=== PATIENT | female | born 1965 | race Hispanic/Latino ===

== ENCOUNTER 2021-08-04 15:06 | Emergency (ER) | payer OTHER ==
[~2021-08-04] VITALS: Ht 162.6 cm; Wt 81.9 kg
[2021-08-04] MEDS ORDERED: ATORVASTATIN CA20 MG PO (15:20)
[2021-08-04] MEDS ORDERED: TRAZODONE HCL100 MG PO (15:20)
[2021-08-04] MEDS ORDERED: AZITHROMYCIN250 MG PO (15:20)
[2021-08-04] MEDS ORDERED: VENLAFAXINE HCL75 M2 PO (15:20)
[2021-08-04] MEDS ORDERED: NAPROSYN500 MG PO (17:03)
[2021-08-04] MEDS ORDERED: CEFDINIR300 MG PO (17:11)
== END 2021-08-04 17:10 | disposition home or self-care (01) ==
LOC: FSED 15:30
DX: M25.562 Pain in left knee (principal); E78.5 Hyperlipidemia, unspecified; F32.9 Major depressive disorder, single episode, unspecified
CPT/HCPCS: 93971; 99284

== ENCOUNTER 2022-07-23 11:23 | Emergency (ER) | payer OTHER ==
[~2022-07-23] VITALS: Ht 162.6 cm; Wt 79.4 kg
[~2022-07-23 11:23] MED LIST: ATORVASTATIN CA20 MG PO; AZITHROMYCIN250 MG PO; CEFDINIR300 MG PO; NAPROSYN500 MG PO; TRAZODONE HCL100 MG PO; VENLAFAXINE HCL75 M2 PO
[2022-07-23] MEDS ORDERED: IBUPROFEN 200 MG TAB PO ONE (12:00)
[2022-07-23] MEDS ORDERED: IBUPROFEN 600 MG TAB ONE (12:07)
== END 2022-07-23 12:30 | disposition home or self-care (01) ==
LOC: FSED 11:32
DX: M25.561 Pain in right knee (principal); E78.5 Hyperlipidemia, unspecified; F32.A Depression, unspecified
CPT/HCPCS: 99283